=== PATIENT | female | born 1950 | race Two or more races ===

== ENCOUNTER 2018-09-30 05:30 | Day surgery (SDC) | payer OTHER ==
[~2018-09-30] VITALS: Ht 167.6 cm; Wt 83.9 kg
[~2018-09-30 05:30] MED LIST: ESSENTIAL DAIL1 EACH PO; FOSAMAX70 MG PO; OMEGA 3 1,0001 EACH PO; SYNTHROID75 MCG PO
[2018-09-30] MEDS ORDERED: ULTRACET PO (09:16)
== END 2018-09-30 15:45 | disposition home or self-care (01) ==
LOC: CIR.AMB 05:30
DX: N81.3 Complete uterovaginal prolapse (principal); Q51.828 Other congenital malformations of cervix